=== PATIENT | female | born 1990 | race Caucasian/White ===

== ENCOUNTER 2017-01-26 15:00 | Observation (INO) | payer OTHER ==
[2017-01-26] MEDS ORDERED: Betameth Ace-Betam SodPhos 6 mg/mL 5 mL Inj ONE (15:55)
--- NOTE | 2017-01-26 16:36 | DIS ---
[address] [address] TRANSFER SUMMARY PATIENT: CELE BUSTAMANTE : 1990 MR#: [id number] ADMIT: 01/26/2017 JOB ID: [id number] This is a 26-year-old female, 1, para 0, at 39 weeks plus four days presented to [facility] for leaking of fluid. During examination at triage, she was noted to be grossly ruptured with clear fluid. She has no contraction. heart tracing was category 1. The patient had routine care at [facility]. She is a compliant patient. During so far was uneventful. Due her care, it was noticed her blood type was O positive. She is varicella immune, rubella immune, RPR negative, hepatitis B negative, HIV negative, HCV negative. Her 1 hour glucose test was within normal limits. Her hemoglobin A1c was 5.3 at early . Her hemoglobin was 12.9 at 36 weeks. PHYSICAL EXAMINATION: She is afebrile. Her blood pressure was 131/77. Her pulse was 84. Her cardiac RRR, no murmur. Pulmonary: Bilaterally clear. Abdomen: Soft, nontender. Uterus gravid and nontender. Digital examination was not performed. Gross ruptured confirmed with clear fluid. No contractions by tocometer. heart tracing category 1. ASSESSMENT AND PLAN: A 26-year-old female, 1, para 0, at 39 weeks four days PPROM. 1. We will start her on betamethasone 12 mg stat. 2. Contacted [facility] at [place] for transfer, accepted by Dr. Chun over there. Discussed the patient about the transfer. She agreed with the plan. 3. With discussion with the physician at [facility] in [place], Dr. Chun, antibiotics will start at [facility].
== END 2017-01-26 16:30 | disposition short-term general hospital (02) ==
LOC: FBCO 15:00 → FBC 15:23
PROVIDERS: ADMIT Obstetrics & Gynecology; ATTEND Obstetrics & Gynecology
DX: O42.92 Full-term premature rupture of membranes, unspecified as to length of time between rupture and onset of labor (principal); Z3A.39 39 weeks gestation of pregnancy
CPT/HCPCS: 84112; G0378; G0463; J0702